=== PATIENT | male | born 1945 | race Caucasian/White ===

== ENCOUNTER 2019-05-26 01:12 | Emergency (ER) | payer OTHER, SELFPAY ==
[2019-05-26 01:11] VITALS: BP 160/70; PULSE 80; RESP 97; TEMP 37.1; O2SAT 97
--- NOTE | 2019-05-26 01:32 | ED.EPISTAXIS ---
HPI - Epistaxis General Chief complaint: Epistaxis Stated complaint: nose bleed Time Seen by Provider: 05/26/19 01:32 Source: patient and RN notes reviewed Mode of arrival: ambulatory Limitations: no limitations History of Present Illness HPI Narrative: Pt is a 73 y/o male presenting to the ED c/o epistaxis. Pt reports he started experiencing epistaxis at 2000 this evening. Pt states the bleeding stopped until it presented again at 2230. Pt notes the epistaxis started on his rt nare but became bilateral shortly after. Pt notes he is currently taking Xarelto due to a Hx of A Fib. Pt also reports Hx's of HLD and HTN. 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 Location: bilateral nostril Onset (ago): hour(s) (3.5) Context: other (Xarelto) Associated symptoms: other (None) Related Data Allergies Allergy/AdvReac Type Severity Reaction Status Date / Time No Known Allergies Allergy Verified 05/26/19 01:43 Review of Systems Review of Systems: All systems reviewed & are unremarkable except as noted in HPI and below ENT: Reports epistaxis (Bilateral) PMFSH Past Medical History Medical History A-fib HLD (hyperlipidemia) HTN (hypertension) Surgical History Surgical History No significant past surgical history Social History Social History Smoking status: Former smoker Exam Const: General: cooperative, no acute distress and alert Nutritional Appearance: well nourished Orientation/consciousness: patient oriented x3 Limitations: no limitations HENMT: Mouth: Yes lip normal Resp: Effort & Inspection: normal respiratory effort Auscultation: clear to auscultation bilaterally Cardio: Rate: regular rate Rhythm: regular rhythm Skin: General skin exam: normal color Neuro: General: patient oriented x3 Cognition (Neuro): normal cognition Speech: normal speech Extrem: General: normal to inspection and full ROM Psych: Mental Status: mental status grossly normal Affect: normal affect Attitude: cooperative Course Course Emergency Course: Afrin instilled in nares bilaterally. Patient provided clips to use for recurrent epistaxis. No recurrent bleeding. Patient discharged. Vital Signs Vital signs: Vital Signs Temperature 98.7 F 05/26/19 01:11 Pulse Rate 80 03/08/20 01:11 Respiratory Rate 97 H 05/26/19 01:11 Blood Pressure 160/70 H 05/26/19 01:11 Pulse Oximetry 97 05/26/19 01:11 Temperature 98.7 F 05/26/19 01:11 Pulse Rate 80 05/26/19 01:11 Respiratory Rate 97 H 05/26/19 01:11 Blood Pressure 160/70 H 05/26/19 01:11 Pulse Oximetry 97 05/26/19 01:11 Critical Care Time Critical Care Time Critical Care Time: No Discharge Plan Discharge Clinical Impression: Epistaxis Patient Disposition: Home, Self-Care Condition: Stable Instructions: Nosebleed (ED) Additional Instructions: May use Afrin spray if needed for recurrent nosebleed. Use nasal clip provided to apply pressure if you have recurrent bleeding. Follow-up with primary care physician for further care. Follow-up/Referrals: UNKNOWN,DOCTOR [Primary Care Provider] -
[2019-05-26] MEDS: OXYMETAZOLINE HCL 0.05% NAS 15 ML BTL (*BKC) 1 SPRAY NASAL (03:00)
[2019-05-26 03:45] VITALS: BP 120/77; PULSE 88; RESP 18; O2SAT 97
== END 2019-05-26 03:46 | disposition home or self-care (01) ==
PROVIDERS: Emergency Provider Emergency Medicine
DX: R04.0 Epistaxis (principal); I48.91 Unspecified atrial fibrillation; Z79.01 Long term (current) use of anticoagulants; E78.5 Hyperlipidemia, unspecified; I10 Essential (primary) hypertension; Z87.891 Personal history of nicotine dependence
CPT/HCPCS: 99283; A9270